=== PATIENT | male | born 1980 | race Caucasian/White ===

== ENCOUNTER 2017-06-19 07:36 | Outpatient (CLI) | payer OTHER ==
[2017-06-19 11:19] LABS: BASOPHILS % (AUTO) 0.3 % (0-1); EOSINOPHILS # (AUTO) 0.2 X10'3 (0-0.9); HEMATOCRIT 45.2 % (42.0-52.0); LYMPHOCYTES % (AUTO) 21.8 % (21-51); MEAN CORPUSCULAR HEMOGLOBIN 33.2 PG (27.0-31.0); MEAN CORPUSCULAR HGB CONC 35.3 % (33.0-36.5); MEAN CORPUSCULAR VOLUME 94.1 FL (78-98); MEAN PLATELET VOLUME 7.5 FL (7.4-10.4); MONOCYTES # (AUTO) 0.4 X10'3 (0-0.9); MONOCYTES % (AUTO) 7.5 % (2-12); NEUTROPHILS # (AUTO) 3.1 X10'3 (1.8-7.7); NEUTROPHILS % (AUTO) 66.4 % (42-75); PLATELET COUNT 206 X10'3 (140-440); RED BLOOD COUNT 4.81 X10'6 (4.70-6.10); RED CELL DISTRIBUTION WIDTH 12.5 % (11.5-14.5); WHITE BLOOD COUNT 4.7 X10'3 (4.5-11.0)
[2017-06-19 11:30] LABS: HEMOGLOBIN A1C 5.4 % (4.5-6.2)
[2017-06-19 12:04] LABS: ALANINE AMINOTRANSFERASE 57 U/L (12-78); ALBUMIN/GLOBULIN RATIO 1.2 (1.1-1.5); ALKALINE PHOSPHATASE 51 IU/L (46-116); ANION GAP 11 (8-16); ASPARTATE AMINO TRANSFERASE 35 U/L (10-37); BILIRUBIN,TOTAL 0.6 MG/DL (0.1-1.0); BLOOD UREA NITROGEN 22 MG/DL (7-18); BUN/CREATININE RATIO 22.4 (5.4-32.0); CALCIUM 9.2 MG/DL (8.5-10.1); CHLORIDE 104 MMOL/L (99-107); CREATININE 0.98 MG/DL (0.60-1.10); FERRITIN 385 NG/ML (26-388); GLUCOSE 78 MG/DL (70-104); MAGNESIUM 2.3 MG/DL (1.5-2.4); SODIUM 142 MMOL/L (135-145); TOTAL CARBON DIOXIDE 26.6 MMOL/L (24-32); TOTAL PROTEIN 7.4 G/DL (6.4-8.2); eGFR 86 ML/MIN
[2017-06-19 12:05] LABS: C-REACTIVE PROTEIN 0.14 MG/DL (0.0-0.5)
[2017-06-20 10:25] LABS: ESTRADIOL 60.7 pg/mL (7.6-42.6); FSH, SERUM 2.3 mIU/mL (1.5-12.4); LUTEINIZING HORMONE 6.5 mIU/mL (1.7-8.6); SEX HORM BINDING GLOB, SERUM 38.8 nmol/L (16.5-55.9); THIIODOTHRONINE, FREE, SERUM 3.7 pg/mL (2.0-4.4)
[2017-06-20 11:21] LABS: PSA, ULTRASENSITIVE W/O SERIAL 0.846 ng/mL (0.000-4.000)
[2017-06-20 13:25] LABS: VITAMIN D, 25-HYDROXY 32.4 ng/mL (30.0-100.0)
== END 2017-06-19 23:59 | disposition home or self-care (01) ==
LOC: LAB 07:36
PROVIDERS: ATTEND Anesthesiology
DX: Z00.01 Encounter for general adult medical examination with abnormal findings (principal); T56.1X4A Toxic effect of mercury and its compounds, undetermined, initial encounter; D50.9 Iron deficiency anemia, unspecified; E87.6 Hypokalemia; E79.0 Hyperuricemia without signs of inflammatory arthritis and tophaceous disease; R73.01 Impaired fasting glucose; E78.2 Mixed hyperlipidemia; I70.91 Generalized atherosclerosis; E06.3 Autoimmune thyroiditis; E06.9 Thyroiditis, unspecified; E03.9 Hypothyroidism, unspecified; E61.0 Copper deficiency; E59 Dietary selenium deficiency; E61.4 Chromium deficiency; E60 Dietary zinc deficiency; R35.1 Nocturia; N40.0 Benign prostatic hyperplasia without lower urinary tract symptoms; E34.9 Endocrine disorder, unspecified; E29.9 Testicular dysfunction, unspecified; E44.1 Mild protein-calorie malnutrition; E50.9 Vitamin A deficiency, unspecified; E53.8 Deficiency of other specified B group vitamins; E55.9 Vitamin D deficiency, unspecified; E56.0 Deficiency of vitamin E; E56.1 Deficiency of vitamin K; E27.40 Unspecified adrenocortical insufficiency; E27.9 Disorder of adrenal gland, unspecified
CPT/HCPCS: 36415; 80053; 82306; 82607; 82670; 82679; 82728; 82746; 83001; 83002; 83036; 83735; 84153; 84255; 84270; 84402; 84403; 84439; 84443; 84481; 84482; 84590; 84630; 85025; 86140

== ENCOUNTER 2017-08-23 13:52 | Outpatient (CLI) | payer OTHER ==
[2017-08-25 08:11] LABS: ESTRADIOL 53.2 pg/mL (7.6-42.6)
== END 2017-08-23 23:59 | disposition home or self-care (01) ==
LOC: LAB 13:52
PROVIDERS: ATTEND Anesthesiology
DX: E34.9 Endocrine disorder, unspecified (principal); E34.50 Androgen insensitivity syndrome, unspecified; N40.0 Benign prostatic hyperplasia without lower urinary tract symptoms; R35.1 Nocturia
CPT/HCPCS: 36415; 82670; 82679

== ENCOUNTER 2017-10-26 13:41 | Outpatient (CLI) | payer OTHER | END 2017-10-26 23:59 | disposition home or self-care (01) | LOC: RAD 13:41 | PROVIDERS: ATTEND Nurse Practitioner Family | DX: N50.812 Left testicular pain (principal) | CPT/HCPCS: 76870 ==

== ENCOUNTER 2019-05-05 08:39 | Outpatient (CLI) | payer OTHER | END 2019-05-05 23:59 | disposition home or self-care (01) | LOC: 64 CT 08:39 | PROVIDERS: ATTEND Radiology Vascular & Interventional Radiology | DX: S06.2X0A Diffuse traumatic brain injury without loss of consciousness, initial encounter (principal); X58.XXXA Exposure to other specified factors, initial encounter; Y93.89 Activity, other specified; Y92.89 Other specified places as the place of occurrence of the external cause; Y99.8 Other external cause status | CPT/HCPCS: 70450 ==

== ENCOUNTER 2020-02-18 10:22 | Outpatient (CLI) | payer BC | END 2020-02-18 23:59 | disposition home or self-care (01) | LOC: EEVIPCON 10:22 → RAD 10:22 | PROVIDERS: ATTEND Physician Assistant Surgical | DX: M65.872 Other synovitis and tenosynovitis, left ankle and foot (principal) | CPT/HCPCS: 73718 ==

== ENCOUNTER 2020-07-26 10:34 | Outpatient (CLI) | payer BC | END 2020-07-26 23:59 | disposition home or self-care (01) | LOC: 64 CT 10:34 | PROVIDERS: ATTEND Physician Assistant Surgical | DX: M25.532 Pain in left wrist (principal) | CPT/HCPCS: 73200 ==

== ENCOUNTER 2021-04-01 07:50 | Outpatient (CLI) | payer BC ==
[2021-04-01 08:47] LABS: BASOPHILS % (AUTO) 0.5 % (0-1); EOSINOPHILS # (AUTO) 0.1 X10'3 (0-0.9); EOSINOPHILS % (AUTO) 2.1 % (0-6); HEMATOCRIT 50.9 % (42.0-52.0); HEMOGLOBIN 17.8 g/dl (14.0-17.9); LYMPHOCYTES # (AUTO) 1.2 X10'3 (1.1-4.8); LYMPHOCYTES % (AUTO) 30.5 % (21-51); MEAN CORPUSCULAR HEMOGLOBIN 34.2 PG (27.0-31.0); MEAN CORPUSCULAR VOLUME 97.7 FL (78-98); MEAN PLATELET VOLUME 7.4 FL (7.4-10.4); MONOCYTES # (AUTO) 0.5 X10'3 (0-0.9); MONOCYTES % (AUTO) 13.2 % (2-12); NEUTROPHILS # (AUTO) 2.1 X10'3 (1.8-7.7); NEUTROPHILS % (AUTO) 53.7 % (42-75); PLATELET COUNT 234 X10'3 (140-440); RED BLOOD COUNT 5.21 X10'6 (4.70-6.10); RED CELL DISTRIBUTION WIDTH 12.6 % (11.5-14.5); WHITE BLOOD COUNT 3.8 X10'3 (4.5-11.0)
[2021-04-01 08:57] LABS: ALANINE AMINOTRANSFERASE 81 U/L (12-78); ALBUMIN/GLOBULIN RATIO 1.1 (1.1-1.5); ALKALINE PHOSPHATASE 50 IU/L (46-116); ANION GAP 8 (8-16); ASPARTATE AMINO TRANSFERASE 52 U/L (10-37); BILIRUBIN,TOTAL 0.7 MG/DL (0.1-1.0); BLOOD UREA NITROGEN 11 MG/DL (7-18); BUN/CREATININE RATIO 11.6 (5.4-32.0); CALCIUM 9.2 MG/DL (8.5-10.1); CHLORIDE 101 MMOL/L (99-107); CHOLESTEROL 170 MG/DL (0-200); CREATININE 0.95 MG/DL (0.60-1.10); GLUCOSE 93 MG/DL (70-104); HDL CHOLESTEROL 34 MG/DL (35-60); LDL CHOLESTEROL 110 MG/DL (50-100); POTASSIUM 4.2 MMOL/L (3.5-5.1); SODIUM 136 MMOL/L (135-145); TOTAL CARBON DIOXIDE 27.2 MMOL/L (24-32); TOTAL PROTEIN 7.7 G/DL (6.4-8.2); TRIGLYCERIDES 127 MG/DL (20-135); eGFR 87 ML/MIN
[2021-04-02 13:45] LABS: PSA, ULTRASENSITIVE W/O SERIAL 0.666 ng/mL (0.000-4.000)
== END 2021-04-01 23:59 | disposition home or self-care (01) ==
LOC: LAB 07:50
PROVIDERS: ATTEND Physician Assistant Surgical
DX: E78.5 Hyperlipidemia, unspecified (principal); R94.6 Abnormal results of thyroid function studies; R79.89 Other specified abnormal findings of blood chemistry; R68.89 Other general symptoms and signs
CPT/HCPCS: 80053; 80061; 82306; 84153; 84402; 84403; 84443; 85025

== ENCOUNTER 2021-05-17 12:40 | Outpatient (CLI) | payer BC ==
[2021-05-17 13:06] LABS: BASOPHILS % (AUTO) 0.3 % (0-1); EOSINOPHILS % (AUTO) 0.6 % (0-6); HEMATOCRIT 54.7 % (42.0-52.0); LYMPHOCYTES # (AUTO) 1.6 X10'3 (1.1-4.8); MEAN CORPUSCULAR HEMOGLOBIN 34.4 PG (27.0-31.0); MEAN CORPUSCULAR HGB CONC 34.9 g/dL (33.0-36.5); MEAN CORPUSCULAR VOLUME 98.8 FL (78-98); MONOCYTES # (AUTO) 0.8 X10'3 (0-0.9); MONOCYTES % (AUTO) 10.2 % (2-12); NEUTROPHILS % (AUTO) 66.9 % (42-75); PLATELET COUNT 237 X10'3 (140-440); RED BLOOD COUNT 5.54 X10'6 (4.70-6.10); RED CELL DISTRIBUTION WIDTH 13.3 % (11.5-14.5); WHITE BLOOD COUNT 7.5 X10'3 (4.5-11.0)
[2021-05-17 13:37] LABS: HEMOGLOBIN 19.1 g/dl (14.0-17.9)
[2021-05-18 12:34] LABS: ESTRADIOL 7.7 pg/mL (7.6-42.6)
[2021-05-18 19:11] LABS: SEX HORM BINDING GLOB, SERUM 31.2 nmol/L (16.5-55.9)
== END 2021-05-17 23:59 | disposition home or self-care (01) ==
LOC: LAB 12:40
PROVIDERS: ATTEND Physician Assistant Surgical
DX: E29.1 Testicular hypofunction (principal); R68.89 Other general symptoms and signs
CPT/HCPCS: 36415; 82670; 84270; 84402; 84403; 84410; 85025

== ENCOUNTER → 2023-10-05 | Outpatient (CLI) | payer BC ==
[2023-10-05 10:54] LABS: BASOPHILS % (AUTO) 0.5 % (0-1); EOSINOPHILS # (AUTO) 0.1 X10'3 (0-0.9); EOSINOPHILS % (AUTO) 2.7 % (0-6); LYMPHOCYTES # (AUTO) 0.9 X10'3 (1.1-4.8); LYMPHOCYTES % (AUTO) 26.7 % (21-51); MEAN CORPUSCULAR HEMOGLOBIN 34.2 PG (27.0-31.0); MEAN CORPUSCULAR HGB CONC 33.9 g/dL (33.0-36.5); MEAN CORPUSCULAR VOLUME 100.8 FL (78-98); MONOCYTES # (AUTO) 0.5 X10'3 (0-0.9); MONOCYTES % (AUTO) 15.3 % (2-12); NEUTROPHILS # (AUTO) 1.8 X10'3 (1.8-7.7); NEUTROPHILS % (AUTO) 54.8 % (42-75); PLATELET COUNT 185 X10'3 (140-440); RED BLOOD COUNT 4.96 X10'6 (4.70-6.10); WHITE BLOOD COUNT 3.2 X10'3 (4.5-11.0)
[2023-10-05 11:17] LABS: ALANINE AMINOTRANSFERASE 74 U/L (12-78); ALBUMIN 4.4 G/DL (3.4-5.0); ALBUMIN/GLOBULIN RATIO 1.3 (1.1-1.5); ALKALINE PHOSPHATASE 47 IU/L (46-116); ANION GAP 8 (8-16); ASPARTATE AMINO TRANSFERASE 46 U/L (10-37); BILIRUBIN,TOTAL 1.2 MG/DL (0.1-1.0); BLOOD UREA NITROGEN 20 MG/DL (7-18); CALCIUM 9.4 MG/DL (8.5-10.1); CHLORIDE 104 MMOL/L (99-107); CHOL/HDL RATIO 2.8 (0.00-4.99); CHOLESTEROL 203 MG/DL (0-200); CREATININE 1.05 MG/DL (0.60-1.10); GLUCOSE 108 MG/DL (70-104); HDL CHOLESTEROL 73 MG/DL (35-60); LDL CHOLESTEROL 106 MG/DL (50-100); POTASSIUM 4.2 MMOL/L (3.5-5.1); SODIUM 140 MMOL/L (135-145); THYROID STIMULATING HORMONE 0.88 ulU/ml (0.34-4.50); TOTAL CARBON DIOXIDE 28.1 MMOL/L (24-32); TOTAL PROTEIN 7.7 G/DL (6.4-8.2); TRIGLYCERIDES 62 MG/DL (20-135); eGFR 77 ML/MIN
[2023-10-06 10:44] LABS: TESTOSTERONE, SERUM 207 ng/dL (264-916); VITAMIN D, 25-HYDROXY 46.1 ng/mL (30.0-100.0)
[2023-10-06 17:21] LABS: CREATININE, URINE 49.6 mg/dL (Not Estab.); MICROALB/CRT, RATIO <6 mg/g creat (0-29); MICROALBUMIN,U,RANDOM <3.0 ug/mL (Not Estab.)
== END | disposition home or self-care (01) ==
LOC: RAD 10:13
PROVIDERS: ATTEND Physician Assistant
DX: Z00.01 Encounter for general adult medical examination with abnormal findings (principal); E78.00 Pure hypercholesterolemia, unspecified; E67.3 Hypervitaminosis D; R94.6 Abnormal results of thyroid function studies; R73.01 Impaired fasting glucose; R80.9 Proteinuria, unspecified; R97.20 Elevated prostate specific antigen [PSA]
CPT/HCPCS: 80053; 80061; 82043; 82306; 82570; 83036; 84402; 84403; 84443; 85025